=== PATIENT | female | born 1965 | race Caucasian/White ===

== ENCOUNTER 2023-03-15 14:02 | Emergency (ER) | payer MEDICAID ==
[~2023-03-15] VITALS: Ht 160 cm; Wt 74.3 kg
[~2023-03-15 14:02] MED LIST: NOR10T; OXYC20TA32; ZOLP5TAB
[2023-03-15] MEDS ORDERED: cloNIDine HCL 0.1 MG TAB PO ONE (14:30)
[2023-03-15] MEDS ORDERED: SODIUM CHLORIDE 0.9% 2,000 ML IV ONE (14:30)
[2023-03-15] MEDS ORDERED: ONDANSETRON ODT 4 MG TAB PO ONE (14:30)
[2023-03-15 14:42] LABS: Basophils # (auto) 0.1 10 ^3/uL (0-0.2); Eosinophils # (auto) 0.2 10 ^3/uL (0-0.8); Eosinophils % (auto) 2.6 % (0.0-7.0); Hematocrit 40.9 % (36.0-46.0); Hemoglobin 13.6 g/dL (12.2-16.2); Lymphocytes % (auto) 27.2 % (10.0-50.0); Mean Corpuscular Hemoglobin 30.3 pg (28.0-32.0); Mean Corpuscular Hgb Conc. 33.4 g/dL (32.0-36.0); Monocytes # (auto) 0.4 10 ^3/uL (0-1.3); Neutrophils # (auto) 4.6 10 ^3/uL (1.6-8.6); Neutrophils % (auto) 63.2 % (37.0-80.0); Nucleated Red Blood Cells % 0.1 %; Red Blood Cells 4.49 10^6/uL (4.0-5.20); Red Cell Distribution Width 13.4 % (11.8-14.3); White Blood Cell 7.4 10^3/uL (4.4-10.8)
[2023-03-15 14:56] LABS: Alanine Aminotransferase 25 U/L (7-40); Albumin 4.5 g/dL (3.2-4.8); Alkaline Phosphatase 106 U/L (46-116); Anion Gap 7 (5-15); Aspartate Aminotransferase 19 U/L (13-40); Bilirubin, Total 0.2 mg/dL (0.2-1.0); Calcium 9.3 mg/dL (8.7-10.4); Carbon Dioxide 25 mmol/L (20-30); Chloride 108 mmol/L (98-107); Glucose 124 mg/dL (74-106); Lipase 52 U/L (12-53); Magnesium 1.8 mg/dL (1.6-2.6); Potassium 3.7 mmol/L (3.5-5.1); Sodium 140 mmol/L (136-145); Total Protein 7.2 g/dL (5.7-8.2)
[2023-03-15 14:57] LABS: Lactic Acid w/Reflex 2.1 mmol/L (0.4-2.0)
[2023-03-15 15:08] LABS: BUN/Creatinine Ratio 5.6 (10.0-20.0); Blood Urea Nitrogen < 5 mg/dL (9-23)
[2023-03-15 16:40] LABS: Urine Bacteria FEW /hpf (None Seen); Urine Blood Negative /uL (Negative); Urine Clarity HAZY (Clear); Urine Color Colorless (Yellow); Urine Protein, UAD Negative (Negative); Urine Specific Gravity 1.008 (1.001-1.035); Urine Urobilinogen Normal (Negative); Urine WBC <1 /hpf (0 - 5); Urine pH 7.5 (5.0-8.0)
[2023-03-15 18:00] VITALS: BP 168/98; PULSE 82; RESP 16; TEMP 97.4; O2SAT 99
[2023-03-15] MEDS ORDERED: IBUPROFEN 800 MG TAB PO ONE (18:15)
== END 2023-03-15 18:39 | disposition home or self-care (01) ==
LOC: ER 14:02
DX: E86.0 Dehydration (principal); F17.210 Nicotine dependence, cigarettes, uncomplicated; X32.XXXA Exposure to sunlight, initial encounter
CPT/HCPCS: 36415; 70450; 80053; 81001; 82962; 83605; 83690; 83735; 83880; 84484; 85025; 93005; 96360; 99284; J7030; Q0162

== ENCOUNTER 2023-10-21 14:05 | Emergency (ER) | payer MEDICAID, OTHER ==
[~2023-10-21] VITALS: Ht 154.9 cm; Wt 70.0 kg
[2023-10-21 14:31] VITALS: BP 140/90; PULSE 77; RESP 18; O2SAT 100
== END 2023-10-21 17:34 | disposition left against medical advice (07) ==
LOC: ER 14:05
DX: M54.9 Dorsalgia, unspecified (principal); M54.2 Cervicalgia; R07.89 Other chest pain; Z53.21 Procedure and treatment not carried out due to patient leaving prior to being seen by health care provider; V89.2XXA Person injured in unspecified motor-vehicle accident, traffic, initial encounter; Y93.89 Activity, other specified; Y92.410 Unspecified street and highway as the place of occurrence of the external cause; Y99.8 Other external cause status

== ENCOUNTER → 2024-01-19 | Outpatient (CLI) | payer MEDICAID | END | disposition home or self-care (01) | LOC: LAB 15:03 | PROVIDERS: ATTEND Internal Medicine | DX: Z12.11 Encounter for screening for malignant neoplasm of colon (principal); Z00.00 Encounter for general adult medical examination without abnormal findings; I10 Essential (primary) hypertension | CPT/HCPCS: 82270 ==

== ENCOUNTER 2024-04-29 16:42 | Emergency (ER) | payer MEDICAID, OTHER ==
[~2024-04-29] VITALS: Ht 160 cm; Wt 70.0 kg
[2024-04-29 17:09] VITALS: BP 153/97; PULSE 89; RESP 18; TEMP 99; O2SAT 96
== END 2024-04-29 17:19 | disposition home or self-care (01) ==
LOC: EDUNIT# 16:53 → ER 16:53
DX: S01.01XA Laceration without foreign body of scalp, initial encounter (principal); Z88.0 Allergy status to penicillin; Z88.1 Allergy status to other antibiotic agents; Z88.8 Allergy status to other drugs, medicaments and biological substances; W22.09XA Striking against other stationary object, initial encounter; Y93.02 Activity, running; Y92.89 Other specified places as the place of occurrence of the external cause; Y99.8 Other external cause status
CPT/HCPCS: 12001

== ENCOUNTER → 2024-06-16 | Outpatient (CLI) | payer MEDICAID ==
[2024-06-16 07:14] LABS: Triglycerides 119 mg/dL (< 150)
[2024-06-16 07:15] LABS: HDL Cholesterol 54 mg/dL (40-59)
[2024-06-16 07:16] LABS: Cholesterol 191 mg/dL (< 200)
[2024-06-16 07:21] LABS: LDL Cholesterol 123 mg/dL (< 100)
== END | disposition home or self-care (01) ==
LOC: LAB 06:40
PROVIDERS: ATTEND Internal Medicine
DX: E78.5 Hyperlipidemia, unspecified (principal)
CPT/HCPCS: 36415; 80061

== ENCOUNTER → 2024-07-09 | Outpatient (CLI) | payer MEDICAID | END | disposition home or self-care (01) | LOC: LAB 09:53 | PROVIDERS: ATTEND Internal Medicine | DX: N80.9 Endometriosis, unspecified (principal); G89.4 Chronic pain syndrome | CPT/HCPCS: 36415; 82672; 84144; 84403 ==

== ENCOUNTER → 2025-02-11 | Outpatient (CLI) | payer MEDICAID ==
[2025-02-11 09:38] LABS: Hematocrit 40.3 % (36.0-46.0); Hemoglobin 13.9 g/dL (12.2-16.2); Mean Corpuscular Hemoglobin 32.0 pg (28.0-32.0); Mean Corpuscular Volume 92.5 fL (80.0-100.0); Nucleated Red Blood Cells % 0.0 %
[2025-02-11 09:56] LABS: Alanine Aminotransferase 17 U/L (7-40); Alkaline Phosphatase 73 U/L (46-116); Anion Gap 8 (5-15); BUN/Creatinine Ratio 11.6 (10.0-20.0); Blood Urea Nitrogen 11 mg/dL (9-23); Calcium 9.8 mg/dL (8.7-10.4); Carbon Dioxide 25 mmol/L (20-31); Cholesterol 181 mg/dL (< 200); Glucose 99 mg/dL (74-106); HDL Cholesterol 49 mg/dL (40-59); Potassium 4.3 mmol/L (3.5-5.1); Sodium 143 mmol/L (136-145); Total Protein 7.2 g/dL (5.7-8.2); Triglycerides 149 mg/dL (< 150)
[2025-02-11 09:57] LABS: Bilirubin, Total 0.9 mg/dL (0.2-1.0)
[2025-02-11 10:01] LABS: Albumin 4.9 g/dL (3.2-4.8); Chloride 110 mmol/L (98-107)
[2025-02-11 10:06] LABS: Urine Amorphous Crystal MOD /hpf (None Seen); Urine Protein, UAD TRACE (Negative)
== END | disposition home or self-care (01) ==
LOC: LAB 08:59
PROVIDERS: ATTEND Internal Medicine
DX: I10 Essential (primary) hypertension (principal); K57.90 Diverticulosis of intestine, part unspecified, without perforation or abscess without bleeding; R42 Dizziness and giddiness
CPT/HCPCS: 36415; 80053; 80061; 81001; 83036; 84443; 85025